=== PATIENT | female | born 1965 | race African-American/Black ===

== ENCOUNTER 2016-12-21 14:07 | Emergency (ER) | payer OTHER ==
--- NOTE | ~2016-12-21 | EKG ---
PATIENT: SVEN AGUILAR UNIT #: [id number] Ventricular Rate: 73 BPM Atrial Rate: 73 BPM P-R Interval: 164 ms QRS Duration: 102 ms Q-T Interval: 414 ms QTC Calculation(Bezet): 456 ms P [place]: 49 degrees Calculated R [place]: 9 degrees Calculated T [place]: 45 degrees Diagnosis Line: Normal sinus rhythm Diagnosis Line: Incomplete right bundle branch block Diagnosis Line: Borderline ECG Diagnosis Line: No previous ECGs available Diagnosis Line: Confirmed by GREG PINTO MD ([id number]) on Diagnosis Line: 12/22/2016 1:38:51 PM INTERPRETING MD: MILLIE CARVAJAL
[2016-12-21] MEDS ORDERED: HCTZ (14:22)
[2016-12-21] MEDS ORDERED: SYNTHROID (14:23)
[2016-12-21] MEDS ORDERED: PRILOSEC (14:23)
[2016-12-21] MEDS ORDERED: LISINOPRIL (14:23)
[2016-12-21] MEDS ORDERED: ZOCOR (14:23)
[2016-12-21] MEDS ORDERED: ASPIRIN ENTERI325 M1 (14:23)
[2016-12-21] MEDS ORDERED: NITROGLYCERIN0.4 MG SL (14:24)
[2016-12-21 14:51] LABS: BASOPHIL% 0.8 % (0-2.5); EOSINOPHIL# 0.4 X10e3 (0-0.7); EOSINOPHIL% 7.4 % (0.0-7.0); HEMATOCRIT 39.2 % (35.0-45.0); HEMOGLOBIN 13.1 gm/dL (12.0-16.0); LYMPHOCYTE% 37.5 % (17.0-45.0); MEAN CELL VOLUME 84.9 FL (83-96); MEAN CORPUSCULAR HEMOGLOBIN 28.4 PG (28-34); MEAN CORPUSCULAR HGB CONC 33.5 g/dL (30-36); MEAN PLATELET VOLUME 10.1 FL (6.5-11.5); MONOCYTE# 0.4 X10e3 (0-1.0); MONOCYTE% 7.4 % (3.0-12.0); NEUTROPHIL# 2.5 X10e3 (1.5-7.1); NEUTROPHIL% 46.9 % (40-75); PLATELET COUNT 192 X10e3 (140-420); RED BLOOD COUNT 4.62 X10e (3.90-5.30); RED CELL DISTRIBUTION WIDTH 14.5 % (11.0-15.5); WHITE BLOOD COUNT 5.3 X10e3 (4.0-10.5)
[2016-12-21 15:01] LABS: DIFF IND NO
[2016-12-21 15:02] LABS: POC - CKMB <1.0 ng/mL (0.0-7.9); POC - TROPONIN <0.05 ng/mL (<=0.05)
[2016-12-21 15:18] LABS: ALBUMIN SERUM 4.4 g/dL (3.5-5.0); BILIRUBIN, DIRECT 0.1 mg/dL (0.0-0.2); BILIRUBIN,INDIRECT 0.5 mg/dL (0.0-0.9); BILIRUBIN,TOTAL 0.6 mg/dL (0.2-2.0); BUN/CREATININE RATIO 12.85; CALCIUM SERUM 9.6 mg/dL (8.4-10.2); CREATININE SERUM 0.7 mg/dL (0.6-1.4); POTASSIUM 3.3 mmol/L (3.5-5.1); PROTEIN TOTAL SERUM 8.2 g/dL (6.0-8.3)
== END 2016-12-21 15:48 | disposition home or self-care (01) ==
LOC: SED 14:07
PROVIDERS: Emergency Medicine
DX: R07.89 Other chest pain (principal); F41.9 Anxiety disorder, unspecified; Z90.49 Acquired absence of other specified parts of digestive tract; Z79.82 Long term (current) use of aspirin; Z79.899 Other long term (current) drug therapy
CPT/HCPCS: 36415; 80048; 80076; 82553; 84484; 85025; 93005; 99285